=== PATIENT | male | born 1990 | race Caucasian/White ===

== ENCOUNTER 2018-11-12 19:34 | Emergency (ER) | payer MEDICAID ==
[~2018-11-12] VITALS: Ht 182.9 cm; Wt 93.0 kg
[2018-11-12 19:40] VITALS: BP_SYST 157
[2018-11-12 20:24] VITALS: BP_SYST 157
== END 2018-11-12 20:24 | disposition home or self-care (01) ==
LOC: SED 19:34
DX: H60.91 Unspecified otitis externa, right ear (principal); J06.9 Acute upper respiratory infection, unspecified; G89.29 Other chronic pain; M25.561 Pain in right knee
CPT/HCPCS: 99283